=== PATIENT | female | born 1945 ===

== ENCOUNTER 2022-11-02 06:00 | Outpatient (RCR) | payer MEDICARE, SELFPAY | END 2022-11-20 23:59 | disposition home or self-care (01) | LOC: WPT 06:00 | PROVIDERS: Visit Provider Family Medicine | DX: R26.89 Other abnormalities of gait and mobility (principal); Z78.9 Other specified health status | CPT/HCPCS: 97110; 97112; 97163; 97530 ==

== ENCOUNTER 2022-11-21 06:00 | Outpatient (RCR) | payer MEDICARE, SELFPAY | END 2022-12-21 23:59 | disposition home or self-care (01) | LOC: WPT 06:00 | PROVIDERS: Visit Provider Family Medicine | DX: R26.89 Other abnormalities of gait and mobility (principal); Z78.9 Other specified health status | CPT/HCPCS: 97110; 97112; 97116; 97530 ==

== ENCOUNTER 2022-12-22 06:00 | Outpatient (RCR) | payer MEDICARE, SELFPAY | END 2023-01-18 23:59 | disposition home or self-care (01) | LOC: WPT 06:00 | PROVIDERS: Visit Provider Family Medicine | DX: R26.89 Other abnormalities of gait and mobility (principal); Z78.9 Other specified health status | CPT/HCPCS: 97110; 97112; 97116; 97530 ==

== ENCOUNTER → 2023-05-05 10:12 | Outpatient (BNVA) | payer MEDICARE, SELFPAY | PROVIDERS: Visit Provider Family Medicine | DX: E87.6 Hypokalemia (principal) | CPT/HCPCS: 83735; 84132 ==

== ENCOUNTER 2024-07-22 06:00 | Outpatient (RCR) | payer MEDICARE, SELFPAY | END 2024-08-20 23:59 | disposition home or self-care (01) | LOC: WPT 06:00 | PROVIDERS: Visit Provider Family Medicine | DX: R26.9 Unspecified abnormalities of gait and mobility (principal) | CPT/HCPCS: 97110; 97112; 97161; 97530 ==

== ENCOUNTER 2024-10-25 06:00 | Outpatient (RCR) | payer MEDICARE, SELFPAY | END 2024-11-20 23:59 | disposition home or self-care (01) | LOC: WPT 06:00 | PROVIDERS: Visit Provider Internal Medicine Cardiovascular Disease | DX: I48.91 Unspecified atrial fibrillation (principal); R53.1 Weakness | CPT/HCPCS: 97110; 97112; 97163; 97530 ==

== ENCOUNTER → 2024-11-22 15:53 | Outpatient (BNVA) | payer MEDICARE, SELFPAY | PROVIDERS: Visit Provider Nurse Practitioner Family | DX: R05.9 Cough, unspecified (principal) | CPT/HCPCS: 87400; 87426 ==